=== PATIENT | female | born 1985 | race Caucasian/White ===

== ENCOUNTER → 2022-12-29 | Outpatient (CLI) | payer MEDICAID, SELFPAY ==
[2022-12-29 12:39] LABS: Absolute Lymphocyte Count 1.95 X10^3/uL (0.83-4.51); Absolute Neutrophil Count 6.4 X10^3/uL (2.0-7.7); Basophil# 0.04 X10^3/uL; Basophil% 0.4 % (0-1); Eosinophil# 0.22 X10^3/uL; Eosinophils% 2.4 % (0-5); Hematocrit 43.5 % (37-47); Hemoglobin 14.3 g/dL (12.0-15.0); Lymphocyte # 1.95 X10^3/ul (0.83-4.51); Lymphocyte % 20.8 % (19-41); Mean Corp Hgb Conc 32.9 g/dL (32-36); Mean Corpuscular Hgb 27.9 pg (27.0-32.0); Mean Corpuscular Volume 84.8 fL (81-99); Mean Platelet Vol. 9.9 fl (6.2-12.0); Monocyte# 0.72 X10^3/uL; Monocyte% 7.7 % (0-10); NRBC Flagged by Analyzer 0 % (0-5); Neutrophil # 6.38 X10^3/uL (2.7-7.7); Neutrophil % 68.2 % (47-70); Platelet Count 352 K/mm3 (150-450); RBC Distribution Width CV 13.2 % (11.6-14.6); RBC Distribution Width SD 40.9 fl (35.1-43.9); Red Blood Count 5.13 M/mm3 (4.2-5.4); White Blood Count 9.4 K/mm3 (4.4-11.0)
[2022-12-29 13:17] LABS: ALB/GLOB Ratio 0.9 RATIO (0.9-2.4); AST(SGOT) 15 U/L (15-37); Alanine Aminotransfer ALT/SGPT 26 U/L (13-56); Albumin, Serum 3.5 g/dL (3.2-5.0); Alkaline Phosphatase 128 U/L (45-117); Anion Gap 4 (5-15); BUN 16 mg/dL (7-18); BUN/Creat Ratio 19.8 RATIO (10-20); Calcium,Total 8.8 mg/dL (8.5-10.1); Chloride 106 mmol/L (98-107); Cholesterol 179 mg/dL (200); Creatinine, Serum 0.81 mg/dL (0.55-1.02); EST Glomerular Filtration Rate 84 mL/min (>60); Est Glom Filt Rate - Afr Amer 101 mL/min (>60); Free T3 3.5 pg/mL (2.18-3.98); Glucose 100 mg/dL (74-106); High Density Lipoprotein 43 mg/dL; Potassium 4.6 mmol/L (3.5-5.1); Protein, Total 7.5 g/dL (6.4-8.2); Sodium Level 138 mmol/L (136-145); T4 Free Direct 0.91 ng/dL (0.76-1.46); Thyroid Stim Hormone (TSH) 3.79 uIU/mL (0.358-3.74); Triglycerides 84 mg/dL; Very Low Density Lipoprotein 17 mg/dL (5-40)
== END | disposition home or self-care (01) ==
LOC: BFHLAB 10:41
PROVIDERS: PCP Family Medicine; Visit Provider Family Medicine
DX: Z00.00 Encounter for general adult medical examination without abnormal findings (principal); E03.9 Hypothyroidism, unspecified
CPT/HCPCS: 36415; 80053; 80061; 84439; 84443; 84481; 85025

== ENCOUNTER 2023-09-03 22:32 | Emergency (ER) | payer MEDICAID, SELFPAY ==
[2023-09-03 22:32] VITALS: BP 156/81; PULSE 83; RESP 22; TEMP 36; O2SAT 99
[2023-09-03] MEDS: 0.9% Normal Saline (1000mL) 1,000 ML 999 ML IV (23:47)
[2023-09-03] MEDS: Morphine 4 MG/ML Syringe IV (23:48)
[2023-09-03] MEDS: Ondansetron 4 MG/2 ML Vial IV (23:48)
[2023-09-03 23:51] LABS: Absolute Lymphocyte Count 1.66 X10^3/uL (0.83-4.51); Absolute Neutrophil Count 8.1 X10^3/uL (2.0-7.7); Basophil# 0.04 X10^3/uL; Basophil% 0.4 % (0-1); Eosinophil# 0.14 X10^3/uL; Eosinophils% 1.3 % (0-5); Hematocrit 40.1 % (37-47); Hemoglobin 13.5 g/dL (12.0-15.0); Lymphocyte # 1.66 X10^3/ul (0.83-4.51); Lymphocyte % 15.6 % (19-41); Mean Corp Hgb Conc 33.7 g/dL (32-36); Mean Corpuscular Hgb 27.9 pg (27.0-32.0); Mean Corpuscular Volume 82.9 fL (81-99); Mean Platelet Vol. 10.1 fl (6.2-12.0); Monocyte# 0.72 X10^3/uL; Monocyte% 6.8 % (0-10); NRBC Flagged by Analyzer 0 % (0-5); Neutrophil # 8.06 X10^3/uL (2.7-7.7); Neutrophil % 75.7 % (47-70); Platelet Count 299 K/mm3 (150-450); RBC Distribution Width CV 13.4 % (11.6-14.6); RBC Distribution Width SD 40.1 fl (35.1-43.9); Red Blood Count 4.84 M/mm3 (4.2-5.4); White Blood Count 10.6 K/mm3 (4.4-11.0)
[2023-09-04] VITALS: BMI 50.1
[2023-09-04 00:20] LABS: Internal QC Validated? YES +Cl - CLEAR BKGD; Pregnancy, Serum, hCG Quali. NEGATIVE Negative
[2023-09-04 00:32] VITALS: BP 170/108; PULSE 95; RESP 20; O2SAT 99
[2023-09-04 00:45] LABS: Bacteria 0 SEEN /hpf (None Seen); Mucous, Urine 0 SEEN /hpf (<or=2+); Squamous Epithelial Cells - UA 0 SEEN /hpf (5-10)
[2023-09-04 00:46] LABS: Color, Urine Yellow (Yellow); Glucose, Dipstick Normal (Normal); Ketone-Dipstick 5 mg/dl (Negative); Leukocyte Esterase-Dipstick 25 /ul (Negative); Nitrite-Dipstick Negative (Negative); Occult Blood-Urine 250 /ul (Negative); Protein-Dipstick 30 mg/dl (Negative); Urine Bilirubin Dipstick Negative (Negative); Urine Clarity Sl. Cloudy (Clear); Urine Urobilinogen Normal (Normal); Urine pH 6.5 (5.0 - 8.0)
[2023-09-04 01:06] LABS: Red Blood Cells-Urine 50-100 SEEN /hpf (0-5); White Blood Cells 0-5 SEEN /hpf (0-5); Yeast-Urine 1+ /hpf (None Seen)
[2023-09-04 01:20] LABS: BUN 21 mg/dL (7-18); Creatinine, Serum 0.94 mg/dL (0.55-1.02); Estimated Creatinine Clearance 100.25 ml/min; Glucose 133 mg/dL (74-106)
[2023-09-04 01:21] LABS: AST(SGOT) 25 U/L (15-37); Alanine Aminotransfer ALT/SGPT 24 U/L (13-56); Albumin, Serum 3.3 g/dL (3.2-5.0); Anion Gap 9 (5-15); Bilirubin, Direct 0.09 mg/dL (0.00-0.30); Calcium,Total 8.6 mg/dL (8.5-10.1); Chloride 111 mmol/L (98-107); Globulin 3.7 g/dL (2.2-4.2); Lipase 20 U/L (13-75); Potassium 3.8 mmol/L (3.5-5.1); Sodium Level 138 mmol/L (136-145)
[2023-09-04 01:22] LABS: Alkaline Phosphatase 117 U/L (45-117)
[2023-09-04 01:25] VITALS: BP 162/111; PULSE 82; RESP 20; O2SAT 98
[2023-09-04] MEDS: Ketorolac 30 MG/ML Syringe IV (02:07)
--- NOTE | 2023-09-04 02:48 | EX.ED.DYSGE1 ---
HPI History of Present Illness Chief Complaint: Abd Pain Informant: patient and spouse/S.O. Narrative Narrative: Patient is a 38-year-old female with past medical history of hypertension. She states she ate dinner this evening and then shortly after was using the restroom she developed sudden onset left-sided abdominal pain. She states the pain is sharp in nature and causing bouts of nausea without vomiting. She denies any recent trauma or excessive activity. She states that she does have a remote history of kidney stones but this feels different in nature. She states she tried gvoj-okr-[id number] medications without symptom improvement and therefore comes in for evaluation. [facility] Medical History (Updated 09/04/23 @ 04:[address] Ghanshyam Adair, DO) WPW (Gtzpm-Movxlgysw-Jhxfd syndrome) HTN (hypertension) Home Medications ?Medication ?Instructions ?Recorded ?Last Taken ?Type fluconazole 150 mg tablet 150 mg PO Q3D 3 doses #3 tabs 09/04/23 Unknown Rx ketorolac 10 mg tablet 10 mg PO 4X/DAY PRN pain 5 days 09/04/23 Unknown Rx #20 tabs ondansetron 4 mg disintegrating 4 mg PO TID PRN nausea and 09/04/23 Unknown Rx tablet vomiting #21 tabs oxycodone-acetaminophen 5 mg-325 1 tab PO Q6H PRN pain 3 days #12 09/04/23 Unknown Rx mg tablet (Percocet) tabs Allergy/AdvReac Type Severity Reaction Status Date / Time bee venom protein (honey Allergy Mild Hives Verified 09/03/23 22:35 bee) (bee sting) Social History Smoking Status: Former smoker ROS ROS ED Constitutional Constitutional ED: Denies chills or fever(s) Eyes Eyes: Denies blurry vision or change in vision ENT ENT ED: Denies sore throat Cardiovascular Cardiovascular: Denies chest pain Respiratory/Chest Respiratory/Chest: Denies cough or dyspnea Gastrointestinal Gastrointestinal: Reports abdominal pain and nausea; Denies diarrhea or vomiting Genitourinary Genitourinary ED: Denies dysuria, hematuria or urinary frequency Musculoskeletal Musculoskeletal: Reports back pain; Denies myalgias Integumentary Denies rash Neurologic Neurologic: Denies headache(s) Hematologic/Lymphatic Hematologic/Lymphatic: Denies easy bleeding or easy bruising EXAM Physical Exam Const Vital Signs: 09/03/23 22:32 09/04/23 00:32 07/16/24 01:25 Temperature 96.8 F L Temperature Source Temporal Pulse Rate 83 95 82 Respiratory Rate 22 H 20 H 20 H Blood Pressure 156/81 H 170/108 H 162/111 H Blood Pressure Mean 106 128 128 Pulse Ox 99 99 98 09/04/23 03:00 Temperature 97.8 F Temperature Source Pulse Rate 80 Respiratory Rate 20 H Blood Pressure 149/99 H Blood Pressure Mean 115 Pulse Ox 98 Positive well nourished, well developed and obese General Appearance ED: well developed; Negative for pallor Nutritional Appearance: obese HEENT HEENT Narrative: No signs of infection noted in the posterior pharynx Eyes PERRL and EOMs intact bilaterally General Eye ED: Negative for pale conjunctiva or scleral icterus Neck supple Resp normal respiratory effort and clear to auscultation bilaterally Cardio regular rate and regular rhythm Rate: other Other Details: Heart is regular rate and rhythm without murmurs rubs or gallop Radial and carotid pulses are equal and symmetric GI non-distended GI Narrative: Abdomen is soft and nondistended with normal active bowel sounds. Patient has mild pain with palpation in the left lateral abdomen without voluntary guarding or rigidity or pulsatile mass Auscultation: normoactive bowel sounds Palpation: soft Back/Spine Back/Spine Narrative: Mild left CVA pain noted Extremity normal to inspection Neuro oriented x3, CN's II-XII intact bilaterally and no sensory deficits noted Sensorium / Orientation: alert Motor Exam: strength 5/5 throughout Psych mental status grossly normal Skin no rashes or lesions noted and no wounds Skin Narrative: No overlying soft tissue changes to suggest trauma or infection General Skin Exam: Negative for jaundice or pallor MDM MDM MDM Narrative Medical decision making narrative: Patient presented to the ER hypertensive but otherwise with stable vitals. She reported sudden onset of left-sided abdominal pain and therefore differential diagnosis is for kidney stone versus UTI versus pyelonephritis versus ovarian cyst versus colitis versus diverticulitis. Secondary to his basic labs and a CT scan were obtained. Labs revealed no signs of acute kidney injury liver enzymes are elevated going against biliary colic or acute cholecystitis and lipase is normal going against acute pancreatitis. Urine showed no sign of infection but a large amount of blood and patient states she is not on her menstrual cycle indicating that the patient most likely has a kidney stone. CT with IV contrast showed changes to the proximal small bowel concerning for enteritis but the patient does not have symptoms consistent with this nor is her pain in that location. After receiving morphine and Toradol patient did have resolution of her pain and on repeat evaluation them remains soft and nonsurgical. Therefore based on her history and physical exam as well as urine sample I feel she most likely has a kidney stone that was masked by the IV contrast or that she is recently passed but at this time as vitals are stable and she is pain-free she is otherwise safe for discharge with symptomatic care History & Record Review Discussion w/independent historian: Patient and Significant other Lab Data Attestation: I reviewed the patient's lab results. Labs: Laboratory Results - last 24 hr 09/03/23 09/03/23 09/04/23 23:42 23:55 00:39 WBC 10.6 RBC 4.84 Hgb 13.5 Hct 40.1 MCV 82.9 MCH 27.9 MCHC 33.7 RDW Std Deviation 40.1 RDW Coeff of Eduardo 13.4 Plt Count 299 MPV 10.1 Immature Gran % (Auto) 0.200 Neut % (Auto) 75.7 H Lymph % (Auto) 15.6 L Dolores % (Auto) 6.8 Eos % (Auto) 1.3 Baso % (Auto) 0.4 Absolute Neuts (auto) 8.1 H Absolute Lymphs (auto) 1.66 Nucleated RBC % 0 Sodium 138 Potassium 3.8 Chloride 111 H Carbon Dioxide 18.0 L Anion Gap 9 BUN 21 H Creatinine 0.94 Estim Creat Clear Calc 100.25 Est GFR (MDRD) Af Amer 85 Est GFR (MDRD) Non-Af 70 BUN/Creatinine Ratio 22.3 H Glucose 133 H Calcium 8.6 Total Bilirubin 0.50 Direct Bilirubin 0.09 AST 25 ALT 24 Alkaline Phosphatase 117 Total Protein 7.0 Albumin 3.3 Globulin 3.7 Lipase 20 Serum , Qual NEGATIVE Urine Color Yellow Urine Clarity Sl. Cloudy Urine pH 6.5 Ur Specific Bigelow 1.010 Urine Protein 30 H Urine Glucose (UA) Normal Urine Ketones 5 H Urine Occult Blood 250 H Urine Nitrite Negative Urine Bilirubin Negative Urine Urobilinogen Normal Ur Leukocyte Esterase 25 H Urine RBC 50-100 SEEN Urine WBC 0-5 SEEN Ur Squamous Epith Cells 0 SEEN Urine Bacteria 0 SEEN Urine Mucus 0 SEEN Urine Yeast 1+ Radiography Diagnostic Testing: Clinical Impression(s) from Imaging Studies Abdomen/Pelvis CT 09/04/23 23:09 IMPRESSION: Findings suggest sequela of infectious or inflammatory enteritis involving the proximal small bowel. Electronically Signed: Letty Duque MD at 1:59 EDT , Discharge Plan Triage Chief Complaint: Abd Pain ED Provider: Ghanshyam Adair Dx/Rx/DC Orders Clinical Impression: Nonspecific abdominal pain, Hypertension, Hematuria Instructions: Abdominal Pain, ED Kidney Stone with Pain Prescriptions: New ondansetron 4 mg tablet,disintegrating 4 mg PO TID PRN (Reason: nausea and vomiting) Qty: 21 0RF ketorolac 10 mg tablet 10 mg PO 4X/DAY PRN (Reason: pain) 5 Days Qty: 20 0RF oxycodone-acetaminophen [Percocet] 5-325 mg tablet 1 tab PO Q6H PRN (Reason: pain) 3 Days Qty: 12 0RF fluconazole 150 mg tablet 150 mg PO Q3D Qty: 3 0RF Primary Care Provider: Rocio Goodman Referrals: Rocio Goodman DO [Primary Care Provider] - Activity Restrictions/Additional Instructions: Your CT scan did not reveal any obvious findings for your pain but your symptom presentation and urine showing a large amount of blood is most consistent with a kidney stone. Take the prescribed medication as directed to help control any pain and return to the ER should you have any further concerns. Print Language: Citizen Of [place] Disposition Disposition: Home, Self Care Discharge Date/Time: 09/04/23 03:10
[2023-09-04 03:00] VITALS: BP 149/99; PULSE 80; RESP 20; TEMP 36.6; O2SAT 98
[2023-09-04 06:11] LABS: BUN/Creat Ratio 22.5 RATIO (10-20); EST Glomerular Filtration Rate 71 mL/min (>60); Est Glom Filt Rate - Afr Amer 85 mL/min (>60)
--- NOTE | 2023-09-04 23:09 | CT_ITS ---
STUDY: CT ABDOMEN AND PELVIS WITH CONTRAST REASON FOR EXAM: Female, 38 years old patient with left lower quadrant (LLQ) abdominal pain RADIATION DOSAGE (If Supplied By Facility): CTDIvol = ( 28.71 ) mGy, DLP = ( 1254.92 ) mGycm TECHNIQUE: Transaxial images were obtained from the dome of the diaphragm to the symphysis pubis without oral contrast. 100 ml of IV Isovue 370 was administered. Sagittal and coronal images were reconstructed. Individualized dose optimization techniques were used for this CT. COMPARISON: None. FINDINGS: The visualized lung bases are unremarkable. The visualized portions of the heart are within normal limits. There is hepatomegaly with diffuse hepatic enlargement. The liver measures up to 22.4 cm in greatest dimension. Normal gallbladder and extrahepatic biliary system. Normal spleen. Normal pancreas. Normal bilateral adrenal glands. Normal right kidney. Normal left kidney. There is no obvious dilated bowel, ascites or pneumoperitoneum. There is some distention of the proximal small bowel with fluid suggesting possible infectious or inflammatory enteritis. The descending colon is nondistended. Ascending colon and transverse colon are within normal limits in appearance. The appendix is visualized and appears normal. Normal abdominal aorta. Normal inferior vena cava. Normal retroperitoneum. Normal urinary bladder. Normal visualized uterus. IUD is present. Normal abdominal wall. Normal osseous structures. CT/Abdomen/Pelvis W IV Cont ONLY IMPRESSION: Findings suggest sequela of infectious or inflammatory enteritis involving the proximal small bowel. Electronically Signed: Letty Duque MD at 1:59 EDT ,
== END 2023-09-04 03:10 | disposition home or self-care (01) ==
PROVIDERS: Emergency Provider Emergency Medicine; PCP Family Medicine; Visit Provider Emergency Medicine
DX: R10.9 Unspecified abdominal pain (principal); Z87.891 Personal history of nicotine dependence; I10 Essential (primary) hypertension; R31.9 Hematuria, unspecified; E66.9 Obesity, unspecified; M54.9 Dorsalgia, unspecified; R11.0 Nausea
CPT/HCPCS: 74177; 80048; 80076; 81001; 83690; 84703; 85025; 96361; 96374; 96375; 99283; Q9967; A4216; J2405